=== PATIENT | male | born 1975 | race Caucasian/White ===

== ENCOUNTER 2016-04-30 06:48 | Inpatient (IN) ==
--- NOTE | 2016-04-29 21:17 | Discharge Summary ---
<Johanny Musa - Last Filed: 04/29/16 21:14> Date of Encounter: 04/29/16 - Discharge Diagnosis (1) Aseptic loosening of prosthetic knee Priority: Primary Status: Acute Qualifiers: Encounter type: initial encounter Qualified Code(s): T84.038A - Mechanical loosening of other internal prosthetic joint, initial encounter; Z96.659 - Presence of unspecified artificial knee joint (2) DMII (diabetes mellitus, type 2) Priority: Secondary Status: Chronic Qualifiers: Diabetes mellitus complication status: with unspecified complications Diabetes mellitus group home insulin use: unspecified group home insulin use status Qualified Code(s): E11.8 - Type 2 diabetes mellitus with unspecified complications (3) Obesity Priority: Secondary Status: Chronic Qualifiers: Obesity type: unspecified obesity type Obesity severity: unspecified obesity severity Qualified Code(s): E66.9 - Obesity, unspecified - Discharge Medications Home Medications: Aspirin Enteric Coated [Aspirin EC] 325 mg PO DAILY #21 tablet. 04/29/16 [Rx] OxyCODONE Immed Rel [Roxicodone 5 MG] 5 - 10 mg PO Q6HR PRN #40 tablet 04/29/16 [Rx] Bupropion HCl [Wellbutrin Xl] 300 mg PO DAILY 04/30/16 [History] Canagliflozin [Invokana] 300 mg PO DAILY 04/30/16 [History] Desvenlafaxine Succinate [Pristiq ER] 100 mg PO DAILY 04/30/16 [History] Dextroamphetamine/Amphetamine [Adderall 20 mg Tablet] 20 mg PO DAILY 04/30/16 [ History] Diazepam [Valium] 10 mg PO DAILY 04/30/16 [History] Lamotrigine [Lamictal] 100 mg PO QAM 04/30/16 [History] Lamotrigine [Lamictal] 200 mg PO HS 04/30/16 [History] Lovastatin [Mevacor] 20 mg PO DAILY 04/30/16 [History] Lurasidone [Latuda] 40 mg PO DAILY 04/30/16 [History] Metformin HCl [Glucophage] 1,000 mg PO BID 04/30/16 [History] Pindolol 10 mg PO BID 04/30/16 [History] Trazodone HCl 200 mg PO HS 04/30/16 [History] Allergies/Adverse Reactions: Allergies carbamazepine [From Tegretol] Adverse Reaction (Verified 04/30/16 07:31) Seizure Primary care physician: Zenon Javier DO - Patient Status Disposition: Home, Self-Care Condition: Good - Discharge Instructions Follow Up With: Zenon Javier DO [Primary Care Provider] - - Hospital Course Hospital course: Mr. Tipton is a 40 year old male - Time Spent with Patient Total time spent providing and/or coordinating discharge services: <Jamey Barnett - Last Filed: 05/01/16 06:48> Date of Encounter: 05/01/16 Time of Encounter: 06:47 - Discharge Diagnosis (1) Patellar instability of right knee Priority: Primary Status: Acute (2) Aseptic loosening of prosthetic knee Priority: Primary Status: Acute Qualifiers: Encounter type: initial encounter Qualified Code(s): T84.038A - Mechanical loosening of other internal prosthetic joint, initial encounter; Z96.659 - Presence of unspecified artificial knee joint (3) DMII (diabetes mellitus, type 2) Priority: Secondary Status: Chronic Qualifiers: Diabetes mellitus complication status: with unspecified complications 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 Tipton is a 40 year old male The patient had an uneventful postoperative course. They received antibiotics and physical therapy and were discharged in stable condition. There will follow -up in the office in 2 weeks. Aspirin DVT prophylaxis - Time Spent with Patient Total time spent providing and/or coordinating discharge services:
[2016-04-30] MEDS ORDERED: CeFAZolin Pre 3,000 MG/100 ML 3,000 MG/100 ML BAG IVPB ONE (07:16)
[2016-04-30] MEDS ORDERED: Lidocaine 1% 20 ML MDV ID ONE (07:16)
[2016-04-30] MEDS ORDERED: Ringers Solution, Lactated 1,000 ML IVC SCH ×2 (07:30→11:41)
[2016-04-30] MEDS ORDERED: Ketorolac 30 MG/ML VIAL ONE ×2 (07:37→09:42)
[2016-04-30] MEDS ORDERED: *HR* FentaNYL (PF) 100 MCG/2 ML VIAL ONE (07:37)
[2016-04-30] MEDS ORDERED: Ondansetron 4 MG/2 ML VIAL ONE (07:37)
[2016-04-30] MEDS ORDERED: Lidocaine -MPF 2% 2 ML VIAL ONE (07:38)
[2016-04-30] MEDS ORDERED: Scopolamine Patch 1.5 MG PATCH.TD72 TD ONE (07:38)
[2016-04-30] MEDS ORDERED: *HR* Propofol 200 MG/20 ML VIAL IVP ONE ×2 (07:38→09:26)
[2016-04-30] MEDS ORDERED: *HR* Midazolam HCl 2 MG/2 ML VIAL ONE (07:38)
[2016-04-30] MEDS ORDERED: *HR* Succinylcholine 200 MG/10 ML VIAL IVP ONE (07:39)
--- NOTE | 2016-04-30 07:39 | Anesthesia Evaluation PreOp ---
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 04/29/16 [Rx] OxyCODONE Immed Rel [Roxicodone 5 MG] 5 - 10 mg PO Q6HR PRN #40 tablet 04/29/16 [Rx] Bupropion HCl [Wellbutrin Xl] 300 mg PO DAILY 04/30/16 [History] Canagliflozin [Invokana] 300 mg PO DAILY 04/30/16 [History] Desvenlafaxine Succinate [Pristiq ER] 25 mg PO DAILY 04/30/16 [History] Dextroamphetamine/Amphetamine [Adderall 20 mg Tablet] 20 mg PO DAILY 04/30/16 [ History] Diazepam [Valium] 10 mg PO DAILY 04/30/16 [History] Lamotrigine [Lamictal] 100 mg PO QAM 04/30/16 [History] Lamotrigine [Lamictal] 200 mg PO HS 04/30/16 [History] Lovastatin [Mevacor] 20 mg PO DAILY 04/30/16 [History] Lurasidone [Latuda] 40 mg PO DAILY 04/30/16 [History] Metformin HCl [Glucophage] 1,000 mg PO BID 04/30/16 [History] Pindolol 10 mg PO BID 04/30/16 [History] Trazodone HCl 200 mg PO HS 04/30/16 [History] Allergies carbamazepine [From Tegretol] Adverse Reaction (Verified 04/30/16 07:31) Seizure - Meds/Allergy Pre-op Review Medications Reviewed: Yes Allergies Reviewed: Yes Beta Blockers on Current Med List: Yes (pindolol) If Beta Blockers taken, Date/Time (Last Dose taken): 04-30-16 4:30 Anesthesia Results - Labs Laboratory Tests 11/22/15 04/16/16 04/16/16 08:05 08:30 08:30 WBC 7.5 Hgb 16.4 Hct 48.0 Plt Count 172 PT 11.1 INR 1.0 APTT 28.2 Sodium Potassium Chloride Carbon Dioxide BUN Creatinine Est GFR ( Amer) Est GFR (Non-Af Amer) BUN/Creatinine Ratio Glucose 109 H Est Mean Plasma Glucose Hemoglobin A1c 04/16/16 04/16/16 08:30 08:30 WBC Hgb Hct Plt Count PT INR APTT Sodium 137 Potassium 4.4 Chloride 102 Carbon Dioxide 24 BUN 10 Creatinine 1.02 Est GFR ( Amer) > 60 Est GFR (Non-Af Amer) > 60 BUN/Creatinine Ratio 10 Glucose Est Mean Plasma Glucose 180 Hemoglobin A1c 7.9 H - Imaging EKG: report reviewed, image reviewed (SR) Anesthesia Exam Last Vital Signs Temp 98.2 F 04/30/16 07:20 Pulse 91 04/30/16 07:20 Resp 18 04/30/16 07:20 BP 121/84 04/30/16 07:20 Pulse Ox 96 04/30/16 07:20 NPO (# of Hours): > 8 hrs - HEENT Pupil (Motor): Pupils equal, EOMI Mallampati: II Teeth: Missing, Poor dentition Oral Opening: Greater than 3 - MAGNETO REPAIRER LOC: Oriented MAGNETO REPAIRER Motor: Normal RUE, Normal LUE, Normal RLE, Normal LLE, Normal Face - Cardiac Rhythm: Regular Murmur: None - Pulmonary Breath Sounds: bilateral Clear Respiratory Effort: Symmetrical Anesthesia Assess/Plan ASA Score: 3 Modified Will Scale for Level of Consciousness: Cooperative, oriented, and tranquil Anesthetic Plan: General, Regional Monitoring Plan: Standard Monitors Recovery Plan: PACU
[2016-04-30] MEDS ORDERED: *HR* Rocuronium Bromide 50 MG/5 ML VIAL ONE (07:40)
[2016-04-30] MEDS ORDERED: Bupivacaine/Clonidine Syringe 1 EACH SYRINGE ONE (07:50)
--- NOTE | 2016-04-30 07:53 | History & Physical Report ---
Date of Encounter: 04/30/16 Time of Encounter: 07:52 24 Hour HP Update - Instructions Instructions: If the History and Physical is less than 30 days old and was completed prior to A.M. admission and or procedure and has NOT been updated on calendar day of procedure please complete this update prior to performing procedure. - Update Patient reports changes in Medical Condition: No Changes in assessment/condition: No Changes in Medication: No Preop tests/diagnostics Reviewed: Yes Surgery Remains Indicated: Yes Consent for Planned Operative Procedure(s) Verified: Yes - Pre-Operative Checklist Preoperative Checklist Indicated: No Prophylactic Antibiotic Ordered: Yes Is VTE Prophylaxis Indicated?: Yes
[2016-04-30] MEDS ORDERED: ROPIVACAINE HCL/PF 0.5% 30 ML VIAL ONE (08:07)
[2016-04-30] MEDS ORDERED: *HR* HYDROmorphone (PF) 1 MG/ML SYRINGE IVP PRN ×2 (09:53→11:41)
[2016-04-30] MEDS ORDERED: Albuterol 2.5 MG/3 ML NEBULIZER IH PRN (09:53)
[2016-04-30] MEDS ORDERED: *HR* Promethazine 25 MG/ML VIAL IVP PRN (09:53)
--- NOTE | 2016-04-30 10:11 | Orthopedic Operative Note ---
Date of procedure: 04/30/16 Pre-op diagnosis: Aseptic loosening right tibia, patellar instability Post-op diagnosis: same Procedure: Procedure: Right revision tibial component extensor realignment Estimated blood loss: 500 cc Hardware: Arthrex tibia size 7, 14 x 80 stem, 12 PS Michelle Exam Under anesthesia: Full flexion full extension well-healed incision no swelling or erythema no varus valgus instability Procedural Notes: Loosening of tibial component patella lateral subluxation Operative procedure: The patient was brought to the operating room and placed on the operating room table. After general anesthesia was administered the operative knee was examined. Findings were noted in the exam under anesthesia. The operative extremity was prepped and draped in sterile surgical fashion. The patient received IV antibiotics prior to skin incision. A standard midline incision was made centered over the patella. The incision was made through the skin and subcutaneous tissue through the old incision. A medial parapatellar tendon approach was performed. Care was taken to preserve tissue along the medial aspect of the patella. And to protect the patella tendon. The deep MCL was released off the medial tibia. The infra patella fat pad was excised. Cultures were obtained as well as Gram stain. 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 An extensive synovectomy was performed. The knee was brought into flexion the tibial poly-was removed. The femur was well fixed. Attention was then turned to the tibial component. The tibial component was loose and removed with an osteotome without any bone loss. Tibia was recut just below the level of the cement mantle. Femur was well fixed. The tibia was prepared first sized to a 7 reamed to a 14 x 80 stem. The finishing punch was seated. Trial had good fit and fixation. Trial reduction revealed full extension and full flexion no varus valgus instability with an 12 PS Michelle. Trial components removed knee sat for 2 minutes with a Betadine saline solution. It was irrigated out with pulse irrigation. Components were assembled on the back table. The tibia cemented. The 12 PS Michelle was seated and secure. The had full flexion and full extension and no varus valgus instability. After the cement hardened the knee was irrigated out again. The knee was taken through a range of motion had excellent patella tracking. The extensor mechanism was closed in a pants over vest fashion with a medial imbrication with a #5 FiberWire suture this was augmented with #2 FiberWire suture and #2 PDS suture. The deep tissue was irrigated and closed deep with #1 PDS suture superficially with 0 PDS suture. The skin was closed with Dermabond and skin maame. The patient was placed in a sterile dressing and postoperative brace. They were extubated and transferred to recovery room in stable condition. Anesthesia: GETA Surgeon: Jamey Barnett Condition: stable Disposition: PACU
[2016-04-30] MEDS: *HR* HYDROmorphone (PF) 1 MG/ML SYRINGE IVP PRN ×2 (10:53→11:00)
[2016-04-30 11:20] LABS: Hematocrit 46.6 % (37.5-50.1); Hemoglobin 15.3 g/dL (12.9-16.9)
--- NOTE | 2016-04-30 11:25 | Anesthesia Evaluation Post Op ---
Date of Encounter: 04/30/16 Time of Encounter: 11:25 - Vital Signs Vital Signs: Last Vital Signs Temp 97.2 F L 04/30/16 11:20 Pulse 82 04/30/16 11:20 Resp 16 04/30/16 11:20 BP 124/86 04/30/16 11:20 Pulse Ox 95 04/30/16 11:20 - Lungs Lungs: Clear Ascult./Percussion - Airway Airway: Non-obstructed - Cardiovascular Regular Rate - Mental Status Mental Status: Alert & Oriented, Answers Appropriately - Pain Pain Scale: 4 - Nausea Vomiting Nausea Vomiting: Not Present - Hydration Hydration: NPO - Discharge PostOp Status: Transfer Patient to floor
[2016-04-30] MEDS ORDERED: Naloxone 0.4 MG/ML INJ IVP PRN (11:41)
[2016-04-30] MEDS ORDERED: ceFAZolin 3,000 MG in D5% in Water 100 ML IVPB SCH (11:41)
[2016-04-30] MEDS ORDERED: Acetaminophen 325 MG TABLET PO PRN (11:41)
[2016-04-30] MEDS ORDERED: D5% in Water 1,000 ML IV PRN (11:41)
[2016-04-30] MEDS ORDERED: *HR* OxyCODONE Immed Rel 5 MG TABLET PO PRN (11:41)
[2016-04-30] MEDS ORDERED: MOM Conc 10 ML UD.LIQ PO PRN (11:41)
[2016-04-30] MEDS ORDERED: Ondansetron 4 MG/2 ML VIAL IVP PRN (11:41)
[2016-04-30] MEDS ORDERED: Temazepam 15 MG CAPSULE PO PRN (11:41)
[2016-04-30] MEDS ORDERED: *HR* Dextrose 50 % in Water (Syg) 50 ML SYRINGE IVP PRN (11:41)
[2016-04-30] MEDS ORDERED: (Dextroamphetamine/Amphetamine [Adderall 20 Mg Tablet PO SCH (11:41)
[2016-04-30] MEDS ORDERED: Dextrose Gel 15 GM PO PRN ×2 (11:41)
[2016-04-30] MEDS ORDERED: Sennosides 8.6 MG TABLET PO PRN (11:41)
[2016-04-30] MEDS: *HR* Metformin 500 MG TABLET PO SCH ×2 (13:34→17:25)
[2016-04-30] MEDS: Insulin LISPRO 300 UNITS/3 ML VIAL SQ SCH ×2 (13:44→17:22)
[2016-04-30] MEDS: diazePAM 10 MG TABLET PO SCH (13:49)
[2016-04-30] MEDS: lamoTRIgine 100 MG TABLET PO SCH (13:49)
[2016-04-30] MEDS: BuPROPion XL (24 HR) 150 MG TABLET PO SCH (13:49)
[2016-04-30] MEDS: (Desvenlafaxine Succinate [Pristiq] 100 MG) PO SCH (13:55)
[2016-04-30] MEDS: (Canagliflozin [Invokana] 300 MG) PO SCH (13:55)
[2016-04-30] MEDS: PINDOLOL 10 MG PO SCH ×2 (13:56→22:16)
[2016-04-30] MEDS: *HR* Enoxaparin 30 MG/0.3 ML SYRINGE SQ SCH (17:22)
[2016-04-30] MEDS: ceFAZolin 3,000 MG in D5% in Water 100 ML IVPB SCH (17:23)
[2016-04-30] MEDS ORDERED: *HR* Enoxaparin 30 MG/0.3 ML SYRINGE SQ SCH (18:00)
[2016-04-30] MEDS: *HR* OxyCODONE Immed Rel 5 MG TABLET PO PRN ×2 (18:12→22:20)
[2016-04-30] MEDS ORDERED: lamoTRIgine 100 MG TABLET PO SCH (21:00)
[2016-04-30] MEDS ORDERED: traZODone 50 MG TABLET PO SCH (21:00)
[2016-05-01] MEDS: ceFAZolin 3,000 MG in D5% in Water 100 ML IVPB SCH (00:30)
[2016-05-01] MEDS: *HR* Enoxaparin 30 MG/0.3 ML SYRINGE SQ SCH (05:29)
[2016-05-01] MEDS: *HR* OxyCODONE Immed Rel 5 MG TABLET PO PRN ×2 (05:31→10:32)
[2016-05-01 06:19] VITALS: BP 118/68
--- NOTE | 2016-05-01 06:49 | Orthopedics Progress Note ---
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 Afebrile vital signs stable. Operative extremity: Neurovascularly intact Dressing clean dry and intact Calves nontender Assessment and plan: Continue with postoperative care Discharged today Objective Vital signs: Vital Signs Temp Pulse Resp BP Pulse Ox 05/01/16 06:18 98.5 F 98 20 118/68 95 05/01/16 03:38 97.9 F 90 15 113/70 96 05/01/16 00:03 97.5 F L 86 16 111/70 94 L 04/30/16 20:04 98.7 F 98 17 105/71 95 04/30/16 18:13 114/78 04/30/16 14:40 97.9 F 100 18 122/82 96 04/30/16 13:44 98.0 F 87 18 144/82 94 L 04/30/16 13:00 98.2 F 86 16 138/91 96 04/30/16 12:10 98.5 F 89 16 128/74 94 L 04/30/16 11:43 97.7 F 84 16 119/77 94 L 04/30/16 11:20 97.2 F L 82 16 124/86 95 04/30/16 11:10 97.2 F L 81 16 130/84 94 L 04/30/16 11:00 86 18 131/79 96 04/30/16 10:50 83 16 139/89 94 L 04/30/16 10:45 85 16 130/85 94 L 04/30/16 10:40 97.3 F L 86 16 139/88 95 04/30/16 09:02 84 124/84 97 04/30/16 08:47 88 134/88 97 04/30/16 07:20 98.2 F 91 18 121/84 96 Intake and Output 04/30/16 04/30/16 05/01/16 15:59 23:59 07:59 Intake Total 0 / 0 350 / 350 Output Total 500 / 500 850 / 850 750 / 750 Balance -500 / -500 -500 / -500 -750 / -750 Intake: IV Fluids 100 / 100 Ancef 3,000 MG In 100 / 100 Dextrose 5% 100 ML @ 200 mls/hr IVPB Q8H [facility] Rx#: [id number] Oral 0 / 0 250 / 250 Output: Urine 850 / 850 750 / 750 Estimated Blood Loss 500 / 500 Other: Blood Glucose* 172 203 - Labs CBC & BMP: 04/30/16 10:51 Labs: Abnormal lab results POC Glucose 164 (58-89) H 04/30/16 07:10 - VTE Documentation of Mechanical Device: Venous foot pump, device Consult Discharge Plan - Plan Referrals: Zenon Javier DO [Primary Care Provider] -
[2016-05-01 07:13] LABS: Hematocrit 40.7 % (37.5-50.1)
[2016-05-01 07:21] LABS: BUN/Creatinine Ratio 15 (6-26); Blood Urea Nitrogen 15 mg/dL (8-26); Calcium 8.7 mg/dL (8.6-10.8); Carbon Dioxide 26 mEq/L (19-29); Chloride 100 mEq/L (98-109); Glucose 191 mg/dL (70-99); Osmolality,Calculated 286 (280-300); Potassium 4.5 mEq/L (3.5-4.5); Sodium 135 mEq/L (136-145); eGFR For African Americans > 60 (> 60); eGFR For Non-African Americans > 60 (> 60)
[2016-05-01 07:45] LABS: Hemoglobin 13.4 g/dL (12.9-16.9)
[2016-05-01] MEDS: *HR* Metformin 500 MG TABLET PO SCH (08:42)
[2016-05-01] MEDS: diazePAM 10 MG TABLET PO SCH (08:42)
[2016-05-01] MEDS: BuPROPion XL (24 HR) 150 MG TABLET PO SCH (08:42)
[2016-05-01] MEDS: lamoTRIgine 100 MG TABLET PO SCH (08:43)
[2016-05-01] MEDS: Insulin LISPRO 300 UNITS/3 ML VIAL SQ SCH (08:44)
[2016-05-01] MEDS: (Desvenlafaxine Succinate [Pristiq] 100 MG) PO SCH (08:45)
[2016-05-01] MEDS: (Canagliflozin [Invokana] 300 MG) PO SCH (08:46)
[2016-05-01] MEDS ORDERED: PINDOLOL 10 MG PO SCH (09:00)
[2016-05-01] MEDS ORDERED: (Dextroamphetamine/Amphetamine [Adderall 20 Mg Tablet PO SCH (10:30)
== END 2016-05-01 12:08 | disposition home or self-care (01) | DRG 467 ==
LOC: SAMDAY 06:48 → 3NENU 11:42
PROVIDERS: ADMIT Orthopaedic Surgery; ATTEND Orthopaedic Surgery